=== PATIENT | male | born 1940 | race Caucasian/White ===

== ENCOUNTER 2024-08-08 12:16 | Outpatient (CLI) | payer MEDICARE, SELFPAY ==
--- NOTE | ~2024-08-08 | PE_ITS ---
EXAMINATION: PET_PETPSMAST_PT DATE: 08/08/2024 14:56 INDICATION: Prostate cancer TECHNIQUE: 5.264 mCi of Illucix Ga-[id number]) was administered i.v. Low dose computed salome graphy (CT) images were acquired from the base of the brain to the base of the brain to the proximal thighs for attenuation correction and anatomic localization. Positron emission tomography (PET) image s were acquired in the same distribution beginning 94 minutes after injection. Images including fused PET/CT images were reconstructed in axial, coronal, and sagittal planes. Automated exposure control technique was employed. The dose-length product was 1005.64mGy-cm. COMPARISON: None FINDINGS: Head/neck: Typical pattern of symmetric physiologic increased activity in the lacrimal, parotid and submandibula r glands as well as along the mucosa of the nasal and oral cavities, pharynx and hypopharynx. No path ologically enlarged cervical lymphadenopathy or suspicious foci of increased uptake in the visualized head or neck. Chest: Dependent atelectasis in the bilateral lower lobes. Calcified left lower lobe nodules along with calc ified left hilar and mediastinal lymph nodes consistent with old granulomatous disease. No suspicious pulmonary nodules, pneumonia, pulmonary edema or pleural effusion. Heart size is normal. Atheroscler otic coronary artery calcific lesion. No pericardial effusion. Thoracic aorta is normal in caliber. S mall sliding-type hiatal hernia. There are bilateral enlarged axillary lymph nodes with the 3 largest lymph nodes on the right measuring between 1.6 and 1.8 cm in maximal short axis diameter and [address] lymph nodes on the left measuring between 1.3 and 1.6 cm in maximal short axis diameter. There is however only minimal associated PET activity with maximal SUV of 2.4 on the left and 1.8 on the right . No other pathologically enlarged or abnormally PSA may avid thoracic lymphadenopathy. Abdomen/pelvis/proximal thighs: Physiologic renal accumulation and excretion of activity in the kidneys, bladder and along portions o f ureters. 1.4 cm exophytic cyst at the upper pole the right kidney. 4 mm nonobstructing stone at a l ower pole calyx of the left kidney. Less than expected amount of tissue in the region of the prostate with coarse calcifications which suggests either sequela of prior prostatectomy or atrophy related t o prior treatment for reported prostate cancer. There is mild activity situated between the regions o f the calcifications with maximal SUV of 2.4 potentially related to recurrent disease. Normal degree and slightly heterogenous pattern of increased uptake throughout the liver and spleen without radiolo gic correlate or dominant PSMA avid lesion. The gallbladder, pancreas and bilateral adrenal glands ar e normal. Moderate uptake scattered throughout the bowels with typical duodenal and proximal jejunal predominance and without radiologic correlate, also likely physiologic. There is prominent diverticul osis along the descending and sigmoid colon without adjacent from trace stranding to suggest divertic ulitis. No other abnormal foci of increased uptake or pathologically enlarged lymphadenopathy in the abdomen, pelvis or proximal thighs. Musculoskeletal: Old healed left femoral neck fracture with likely artifactual mild uptake along the margins of a late ral plate and screw fixation at the proximal left femur without radiologic correlate. 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 There is suture anchors at the right h umeral head consistent with prior rotator cuff repair with likely recurrent tear with cephalad sublux ation of the humeral head with respect to the glenoid and abutting the undersurface of the acromion. Mild lumbar dextrocurvature with moderate to severe spondylosis. No suspicious lytic, blastic or abno rmally PSMA avid bone lesions. IMPRESSION: 1. Minimal tissue in the region of the prostate which suggests either prior prostatectomy or atrophy related to prior treatment with small focus of mild uptake centrally, equivocal for residual/recurren t disease. 2. Enlarged bilateral axillary lymphadenopathy os with only minimal activity on PET imaging. Although differential includes metastatic prostate cancer, differential would also include other benign prost atic metastatic disease, lymphoma or reactive lymphadenopathy. Recommend ultrasound-guided core needl e biopsy for further evaluation. Reviewed, dictated and finalized at location A. IMPRESSION: 1. Minimal tissue in the region of the prostate which suggests either prior pro statectomy or atrophy related to prior treatment with small focus of mild uptak e centrally, equivocal for residual/recurrent disease. 2. Enlarged bilateral axillary lymphadenopathy os with only minimal activity on PET imaging. Although differential includes metastatic prostate cancer, differ ential would also include other benign prostatic metastatic disease, lymphoma o r reactive lymphadenopathy. Recommend ultrasound-guided core needle biopsy for further evaluation.
== END 2024-08-08 12:17 | disposition home or self-care (01) ==
PROVIDERS: PCP Family Medicine; Visit Provider Nurse Practitioner
DX: C61 Malignant neoplasm of prostate (principal)
CPT/HCPCS: 78815; A9596